=== PATIENT | male | born 1970 | race Two or more races ===

== ENCOUNTER 2020-05-07 12:26 | Emergency (ER) | payer SELFPAY ==
[~2020-05-07] VITALS: Ht 175.3 cm; Wt 108.9 kg
[2020-05-07 12:58] LABS: BASOPHILS % (AUTO) 0.5 % (0.0-2.0); EOSINOPHILS # (AUTO) 0.2 K/uL (0.0-0.7); EOSINOPHILS % (AUTO) 3.1 % (0.0-7.0); HEMATOCRIT 43.3 % (36.7-47.1); HEMOGLOBIN 14.4 g/dL (12.5-16.3); LYMPHOCYTES # (AUTO) 2.6 K/uL (20.0-40.0); LYMPHOCYTES % (AUTO) 38.2 % (20.5-51.5); MEAN CORPUSCULAR HEMOGLOBIN 29.5 uug (23.8-33.4); MEAN CORPUSCULAR HGB CONC 33 g/dL (32.5-36.3); MEAN CORPUSCULAR VOLUME 88.7 fL (73.0-96.2); MONOCYTES # (AUTO) 0.5 K/uL (2.0-10.0); MONOCYTES % (AUTO) 7.8 % (0.0-11.0); NEUTROPHILS # (AUTO) 3.4 K/uL (1.8-8.9); NEUTROPHILS % (AUTO) 50.4 % (38.5-71.5); PLATELET COUNT (AUTO) 265 K/uL (152-348); RED BLOOD CELL COUNT(AUTO) 4.88 MIL/uL (4.06-5.63); WHITE BLOOD COUNT (AUTO) 6.7 K/uL (3.6-10.2)
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
[2020-05-07 13:06] LABS: CREATININE 1.3 mg/dL (0.6-1.3); POTASSIUM 3.5 mmol/L (3.5-5.1)
[2020-05-07 13:12] LABS: BILIRUBIN,DIRECT 0.1 mg/dL (0.0-0.2); BILIRUBIN,TOTAL 0.5 mg/dL (0.2-1.0); TOTAL PROTEIN, SERUM 7.8 g/dL (6.4-8.2)
[2020-05-07] MEDS ORDERED: SWABABLE VALVE TRANSFER SET EA MC ONE (13:32)
[2020-05-07] MEDS ORDERED: IV NORMAL SALINE 250 ML IV ONE (13:32)
[2020-05-07] MEDS ORDERED: IOHEXOL 300MG/ML 100 ML INFUS..BTL ONE (13:32)
[2020-05-07] MEDS ORDERED: KETOROLAC TROMETHAMINE 15 MG INJ IM ONE (14:15)
[2020-05-07] MEDS ORDERED: IV NORMAL SALINE 500 ML BAG IV ONE (14:15)
[2020-05-07] MEDS ORDERED: KETOROLAC TROMETHAMINE 15 MG INJ ONE (14:19)
[2020-05-07 15:31] LABS: *BILIRUBIN,URIN NEGATIVE (NEGATIVE); *BLOOD, URINE NEGATIVE (NEGATIVE); *CLARITY,URINE CLEAR (CLEAR); *COLOR,URINE YELLOW (YELLOW); *KETONES,URINE NEGATIVE (NEGATIVE); LEUKOCYTE ESTERASE ,URINE NEGATIVE (NEGATIVE); NITRITE, URINE NEGATIVE (NEGATIVE); PH,URINE 5.5 (5.0-8.0); UGLUCOSE NEGATIVE (NEGATIVE)
--- NOTE | 2020-05-07 15:50 | NUR ---
Per Dr. Barber pt stable for discharge. DC instructions and rx given and reviewed with patient. Verbalized understanding. IV dc'd noted with tip intact. Denied pain. Left ER in stable condition.
== END 2020-05-07 15:52 | disposition home or self-care (01) ==
LOC: ER 12:30
DX: S20.212A Contusion of left front wall of thorax, initial encounter (principal); S30.1XXA Contusion of abdominal wall, initial encounter; V43.52XA Car driver injured in collision with other type car in traffic accident, initial encounter; Y92.410 Unspecified street and highway as the place of occurrence of the external cause; R10.32 Left lower quadrant pain; K76.0 Fatty (change of) liver, not elsewhere classified; R03.0 Elevated blood-pressure reading, without diagnosis of hypertension; E66.9 Obesity, unspecified; Z68.35 Body mass index [BMI] 35.0-35.9, adult
CPT/HCPCS: 36415; 71260; 74177; 80048; 80076; 81001; 85025; 93005; 96372; 99285; J1885; Q9967; A4663; J7050